=== PATIENT | female | born 1970 | race Caucasian/White ===

== ENCOUNTER 2021-01-21 12:58 | Emergency (ER) | payer OTHER, SELFPAY ==
--- NOTE | ~2021-01-21 | XR_ITS ---
EXAMINATION: XR CHEST CLINICAL INFORMATION: Palpitations COMPARISON: None TECHNIQUE: 2 views of the chest were obtained. FINDINGS: No significant abnormality is noted involving the heart, lungs, mediastinum, bony thorax or soft tissues. XR/XR chest 2V IMPRESSION: Unremarkable chest examination.
[2021-01-21 13:08] VITALS: BP 139/92; BP 141/80; PULSE 84; PULSE 94; RESP 13; O2SAT 100; BMI 21.5
--- NOTE | 2021-01-21 13:15 | ED_ITS ---
HPI - Arrhythmia/Palpitations General Chief Complaint: Arrhythmia/Palpitations Stated Complaint: cp Time Seen by Provider: 01/21/21 13:04 Source: patient Mode of arrival: EMS Limitations: no limitations History of Present Illness HPI narrative: A 50 year old patient presents with her palpitations that started at 11:50 a.m. this morning. Patient was sitting at home, and felt her heart racing, she felt lightheaded. Her had a pulseoximeter, patient's heart rate was 168 to the 130s. This episode lasted 15 or 20 minutes. When EMS arrived, her heart rate was 110, no vagal maneuvers were used. Patient's heart rate is currently 84. Patient has no history of SVT. During the episode she had no nausea, no chest pain, no shortness of breath. Reports she will feel her heart racing a few times a week, but it is barely noticeable goes away on its own. Saw cardiology 10 years ago for palpitations, reports she was put on a monitoring and evaluation advisor, had a normal echo, and was prescribed 25 mg of metoprolol which she has taken since that time. Patient is perimenopausal. 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 complaint: palpitations Onset (ago): hour(s) (1.5) Duration: now resolved Severity: moderate Context: occurred during rest Arrhythmia history: other (pmh PVC's) Associated symptoms: other (lightheaded) Related Data Allergies Allergy/AdvReac Type Severity Reaction Status Date / Time No Known Allergies Allergy Verified 01/21/21 13:15 Review of Systems Constitutional: Constitutional: Denies body ache(s), Denies chills, Denies fatigue, Denies fever(s), Denies headache(s), Denies malaise and Denies weakness Eyes: Eyes: Denies blurry vision and Denies diplopia ENT: Denies dizziness and Denies headache(s) Cardiovascular: Cardiovascular: Denies chest pain, Denies Epigastric Pain, Denies syncope, Denies leg edema, Denies Loss of Consciousness, Reports palpitations, Denies dyspnea and Denies dyspnea on exertion Respiratory: Respiratory: Denies chest congestion, Denies cough, Denies dyspnea and Denies dyspnea on exertion Gastrointestinal: Gastrointestinal: Denies abdominal pain, Denies constipation, Denies diarrhea and Denies vomiting Genitourinary: Genitourinary: Reports no additional female genitourinary complaints Musculoskeletal: Musculoskeletal: Reports no additional musculoskeletal complaints Integumentary/Breasts: Skin/Breast: Reports system reviewed and no additional complaints, except as docu Neurologic: Denies confusion, Denies dizziness, Denies syncope, Denies headache(s) and Denies weakness Psychiatric: Psychiatric: Denies anxiety, Denies confusion and Denies depression Endocrine: Endocrine: Denies fatigue and Reports palpitations PMFSH Past Medical History [facility] Narrative: Hypothyroid PVCs Social History Social History Advance Directives: No Advance Directives Information Provided: No Patient : No Physical Exam Vital Signs: Vital Signs: Last Vital Signs Temp 98.6 F 01/21/21 14:30 Pulse 76 01/21/21 16:51 Resp 16 01/21/21 16:51 BP 107/67 01/21/21 14:30 Pulse Ox 98 01/21/21 14:30 Body Mass Index 21.5 Const: General: healthy appearing, no acute distress, alert and awake; No confusion Nutritional Appearance: well nourished Orientation/consciousness: patient oriented x3 and No confusion Limitations: no limitations HENMT: Head: Yes normal to inspection, Yes normocephalic and Yes atraumatic Ears: hearing grossly normal bilaterally and external ears normal General nose exam: Normal external nose present Face and sinus: Yes normal facial exam Eyes: Conjunctivae: conjunctivae normal Pupils: Equal, round and reactive pupils present EOM: EOMs intact bilaterally Neck: Neck: Yes full ROM, Yes no lymphadenopathy and Yes supple Resp: Effort & Inspection: normal respiratory effort and able to speak in complete sentences Auscultation: clear to auscultation bilaterally, no crackles, no rales, no rhonchi and no wheezes Cardio: Rate: regular rate Rhythm: regular rhythm Heart sounds: S1 normal heart sound present and S2 normal heart sound present GI: Inspection: Yes normal to inspection Palpation (GI): Soft to palpation, nontender, no guarding and not rigid Percussion: Yes normal to percussion Auscultation: normal bowel sounds Skin: General skin exam: no rashes or lesions noted Neuro: General: patient oriented x3 and No confusion Cranial nerves: Yes Equal, round and reactive pupils present Extrem: General: Yes normal to inspection and Yes full ROM Psych: Appearance: grossly normal Affect: normal affect Attitude: cooperative Thought process: Normal thought process present Course Course Course Narrative: 50-year-old woman presents for palpitations that lasted for 15-20 minutes prior to arrival. Patient felt lightheaded. No chest pain, no shortness of breath. Patient is hypothyroid, with a history of PVCs. On metoprolol 25 mg. Will get labs, EKG, chest x-ray. Reevaluation(s) Reevaluation #1: Patient felt palpitations for few seconds, looked to the monitor, reports her heart rate was 120. Patient called to the nursing station, legal secretary states heart rate was 105. EKG shows prolonged QTC of 485 Reevaluation #2: Patient's initial troponin is 30.1. Labs are otherwise unremarkable, EKG shows no ischemic changes, magnesium is 2.0, chest x-ray shows no acute process. Discussed that this troponin is most likely elevated due to demand ischemia, discussed with patient utility of repeating troponin. Patient's TSH is size 6.13. Normal free T4. Repeat troponin shows an elevation that is not significant Discussed need to follow-up with Cardiology, referred Patient to [facility] Constipation of follow-up with her PCP for her elevated TSH MDM - Arrhythmia/Palpitations Lab Data Result diagrams: 01/21/21 14:29 01/21/21 14:29 Labs: Lab Results 01/21/21 01/21/21 01/21/21 Range/Units 14:29 14:29 14:29 WBC 10.0 (4.8-10.8) X10*3/uL RBC 4.00 L (4.20-5.50) X10*6/uL Hgb 13.5 (12.0-16.0) g/dl Hct 37.8 (37-47) % MCV 94.5 (80-98) fL MCH 33.8 H (27.0-33.0) pg MCHC 35.7 H (31.0-35.0) g/dl RDW 12.9 (11.0-16.0) % Plt Count 277 (160-400) X10*3/uL MPV 8.4 L (9.4-12.3) fL Immature Gran % (Auto) 0.4 (0.0-0.4) % Neut % (Auto) 67.9 (45-73) % Lymph % (Auto) 22.7 (20-40) % [place] % (Auto) 6.6 (2-11) % Eos % (Auto) 1.8 (0-4) % Baso % (Auto) 0.6 (0-2) % Lymph # (Auto) 2.3 (1.2-4.9) X10*3/uL [place] # (Auto) 0.7 (0.1-1.2) X10*3/uL Eos # (Auto) 0.2 (0.0-0.4) X10*3/uL Baso # (Auto) 0.1 (0.0-0.2) X10*3/uL Abs Immat Gran (auto) 0.04 H (0.00-0.03) X10*3/uL Absolute Neuts (auto) 6.8 (2.0-8.3) X10*3/uL Absolute Nucleated RBC 0.000 (0.0-0.012) X10*3/uL Nucleated RBC % (auto) 0.0 (0.0-0.2) /100WBC Sodium 138 (135-145) mmol/L Potassium 3.7 (3.3-5.1) mmol/L Chloride 107 (96-108) mmol/L Carbon Dioxide 22 (22-29) mmol/L Anion Gap 13 (12-20) BUN 13 (9-16) mg/dL Creatinine 0.78 (0.5-1.4) mg/dL Estim Creat Clear Calc 66.7 Estimated GFR > 60 Random Glucose 89 (60-115) mg/dL Calcium 9.1 (8.4-10.2) mg/dL Magnesium 2.0 (1.6-2.6) mg/dL Troponin I High Sens 30.1 H* (<3.5-17.0) ng/L TSH (0.32-4.0) uIU/mL Free T4 0.87 (0.71-1.85) ng/dL 01/21/21 01/21/21 Range/Units 14:29 17:34 WBC (4.8-10.8) X10*3/uL RBC (4.20-5.50) X10*6/uL Hgb (12.0-16.0) g/dl Hct (37-47) % MCV (80-98) fL MCH (27.0-33.0) pg MCHC (31.0-35.0) g/dl RDW (11.0-16.0) % Plt Count (160-400) X10*3/uL MPV (9.4-12.3) fL Immature Gran % (Auto) (0.0-0.4) % Neut % (Auto) (45-73) % Lymph % (Auto) (20-40) % [place] % (Auto) (2-11) % Eos % (Auto) (0-4) % Baso % (Auto) (0-2) % Lymph # (Auto) (1.2-4.9) X10*3/uL [place] # (Auto) (0.1-1.2) X10*3/uL Eos # (Auto) (0.0-0.4) X10*3/uL Baso # (Auto) (0.0-0.2) X10*3/uL Abs Immat Gran (auto) (0.00-0.03) X10*3/uL Absolute Neuts (auto) (2.0-8.3) X10*3/uL Absolute Nucleated RBC (0.0-0.012) X10*3/uL Nucleated RBC % (auto) (0.0-0.2) /100WBC Sodium (135-145) mmol/L Potassium (3.3-5.1) mmol/L Chloride (96-108) mmol/L Carbon Dioxide (22-29) mmol/L Anion Gap (12-20) BUN (9-16) mg/dL Creatinine (0.5-1.4) mg/dL Estim Creat Clear Calc Estimated GFR Random Glucose (60-115) mg/dL Calcium (8.4-10.2) mg/dL Magnesium (1.6-2.6) mg/dL Troponin I High Sens 43.6 H* (<3.5-17.0) ng/L TSH 6.13 H (0.32-4.0) uIU/mL Free T4 (0.71-1.85) ng/dL ECG Data Interpretation: Normal axis, sinus with a rate of 100. WI interval 160. QRS 88. Patient has prolonged QTc at 485. No ST elevations or depressions, no T- wave inversions or flattening. Discharge Plan Discharge Clinical Impression: Supraventricular tachycardia Patient Disposition: Home, Self-Care Instructions: Supraventricular Tachycardia (ED) Additional Instructions: If you have palpitations again, please refer to the information I printed for you, and please do a Valsalva maneuver. I suggest you lie down on the floor, lift your knees up to your chest, bear down and blow through a straw. If you cannot break the palpitations, please return to the emergency room. In addition, if you have chest pain, shortness of breath, nausea, sweatiness, return to the emergency room Please call Dr Leong, Cardiology, at [phone], tomorrow morning for a follow up appointment. Please follow-up with your primary care provided for your elevated TSH. Referrals: Jose Leong MD [Physician] - 2 days (new SVT)
--- NOTE | 2021-01-21 13:16 | ECG_ITS ---
Test Reason : PALPITATIONS Blood Pressure : / mmHG Vent. Rate : 100 BPM Atrial Rate : 100 BPM P-R Int : 160 ms QRS Dur : 088 ms QT Int : 376 ms P-R-T Axes : 076 062 065 degrees QTc Int : 485 ms Normal sinus rhythm Prolonged QT Abnormal ECG No previous ECGs available Referred By: Nusrat Jesus Electronically Signed By:TJ CLARK
[2021-01-21 14:30] VITALS: BP 107/67; PULSE 68; RESP 14; TEMP 37; O2SAT 98
[2021-01-21 14:37] LABS: MANUAL DIFF FLAG NO
[2021-01-21 14:38] LABS: Basophils Absolute Auto 0.1 X10*3/uL (0.0-0.2); Basophils Percent Auto 0.6 % (0-2); Eosinophils Absolute Auto 0.2 X10*3/uL (0.0-0.4); Eosinophils Percent Auto 1.8 % (0-4); Hematocrit 37.8 % (37-47); Hemoglobin 13.5 g/dl (12.0-16.0); Imm Gran Abs Auto 0.04 X10*3/uL (0.00-0.03); Imm Gran Pct Auto 0.4 % (0.0-0.4); Lymphocytes Absolute Auto 2.3 X10*3/uL (1.2-4.9); Lymphocytes Percent Auto 22.7 % (20-40); Mean Corpuscular HGB Conc 35.7 g/dl (31.0-35.0); Mean Corpuscular Hemoglobin 33.8 pg (27.0-33.0); Mean Corpuscular Volume 94.5 fL (80-98); Mean Platelet Volume 8.4 fL (9.4-12.3); Monocytes Absolute Auto 0.7 X10*3/uL (0.1-1.2); Monocytes Percent Auto 6.6 % (2-11); Neutrophils Absolute Auto 6.8 X10*3/uL (2.0-8.3); Neutrophils Percent Auto 67.9 % (45-73); Platelet Count 277 X10*3/uL (160-400); Red Cell Distribution Width 12.9 % (11.0-16.0)
[2021-01-21 15:04] LABS: Anion Gap 13 (12-20); Blood Urea Nitrogen 13 mg/dL (9-16); Calcium 9.1 mg/dL (8.4-10.2); Carbon Dioxide 22 mmol/L (22-29); Chloride 107 mmol/L (96-108); Creatinine Clr Calc Pharmacy 66.7; Estimated Glomerular Filt Rate > 60; Glucose Random 89 mg/dL (60-115); Potassium 3.7 mmol/L (3.3-5.1); Sodium 138 mmol/L (135-145)
[2021-01-21 15:12] LABS: Troponin-I High Sensitivity 30.1 ng/L (<3.5-17.0)
[2021-01-21 15:25] LABS: Thyroid Stimulating Hormone 6.13 uIU/mL (0.32-4.0)
[2021-01-21 16:05] LABS: Free T4 (Free Thyroxine) 0.87 ng/dL (0.71-1.85)
[2021-01-21 16:51] VITALS: PULSE 76; RESP 16
[2021-01-21 18:18] LABS: Troponin-I High Sensitivity 43.6 ng/L (<3.5-17.0)
== END 2021-01-21 19:14 | disposition home or self-care (01) ==
PROVIDERS: Physician Assistant; Emergency Provider Emergency Medicine; PCP Internal Medicine
DX: I47.1 Supraventricular tachycardia (principal); R00.2 Palpitations; Z79.899 Other long term (current) drug therapy
CPT/HCPCS: 36415; 71046; 80048; 83735; 84439; 84443; 84484; 85025; 93005; 99284; 99285

== ENCOUNTER 2024-03-02 08:11 | Outpatient (AMB) | payer OTHER, SELFPAY ==
--- NOTE | 2024-03-02 08:26 | A.OFFVIS_ITS ---
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 She has had palpitations for almost 15 years, presumed to be PVCs. As she has been having flare-up episodes off and on but for the most part well controlled. In 2020, she had an episode palpitations and she believes it was SVT episode. Any case, when she came to the ER it looked like normal rhythm. Troponins were slightly high. After that, she was seen at [facility]. It seems she had an echocardiogram and Holter which were unremarkable. She had 1 further episode few months back when she went to another hospital elsewhere. However, she states that when she went to ER workup was essentially unremarkable. Then she bought an Apple watch and started recording things herself. That showed PVCs which I was able to review today. [facility] Surgical History (Updated 03/02/24 @ 08:32 by Cassie Evans CMA) H/O bilateral oophorectomy Family History (Updated 03/02/24 @ 08:34 by Cassie Evans CMA) Father HTN (hypertension) Esophageal cancer Paternal Grandfather HTN (hypertension) Maternal Grandfather Lung cancer Sister Ovarian cancer Social History (Updated 03/02/24 @ 08:34 by Cassie Evans CMA) Alcohol intake: current Alcohol intake frequency: holidays/special occasions only Patient Tobacco Use Status: Former Tobacco user Review of Systems Const Denies chills, Denies daytime sleepiness, Denies fatigue, Denies fever(s), Denies poor appetite, Denies snoring, Denies stops breathing during sleep, Denies weakness, Denies weight gain and Denies weight loss Eyes Denies loss of vision ENT Denies dizziness and Denies hearing loss Card Denies chest pain, Denies irregular heart rhythm, Denies claudication, Denies leg edema, Denies lightheadedness, Denies palpitations, Denies dyspnea on exertion and Denies orthopnea Resp Denies cough, Denies excessive phlegm production, Denies dyspnea on exertion, Denies snoring and Denies wheezing GI Denies abdominal pain, Denies hematochezia, Denies change in bowel habits, Denies nausea and Denies vomiting Denies urinary frequency and Denies dysuria Musc Denies arthralgias, Denies muscle weakness, Denies numbness and Denies other Skin/Breast Denies nail changes and Denies rash Neuro Denies Abnormal speech present, Denies dizziness, Denies loss of vision, Denies memory loss, Denies numbness and Denies weakness Psych Denies depression and Denies memory loss Endo Denies fatigue and Denies palpitations Sandre/Lymph Denies easy bruising Aller/Immun Denies wheezing Physical Exam Vital Signs: Last Vital Signs Pulse 59 03/02/24 08:30 BP 102/64 03/02/24 08:30 BMI result Body Mass Index 22.3 Const General: comfortable and no acute distress Orientation/consciousness: patient oriented x3 HEENT Other: Unremarkable Head: Yes normal to inspection Neck Neck: Yes normal visual inspection Chest Chest palpation & inspection: normal inspection of the chest Resp Auscultation: clear to auscultation bilaterally Cardio Palpation: normal PMI Heart sounds: S1 normal heart sound present, S2 normal heart sound present, no gallops, no murmurs and no rubs GI Palpation (GI): Soft to palpation Back/Spine/Pelvis Other: unremarkable Skin General skin exam: no rashes or lesions noted Neuro General: patient oriented x3 Speech: No Abnormal speech present Extrem General: Yes normal to inspection Psych Mental Status: mental status grossly normal Office Procedures EKG Details: EKG today with sinus rhythm at 59/Min; no significant ST-T changes and otherwise [place] [id number], Complete Assessment & Plan Assessment & Plan (1) Heart palpitations: Code(s): R00.2 - Palpitations Category: Medical (2) PVC (premature ventricular contraction): Code(s): I49.3 - Ventricular premature depolarization Category: Medical (3) Elevated troponin: Code(s): R79.89 - Other specified abnormal findings of blood chemistry Category: Medical Plan Troponins in 2020 were slightly high at 30 and 43. On review of smart watch tracings, evidence of PVCs. They do look unifocal. There is evidence of bigeminy. No runs noted. Essentially, long history of PVCs with intermittent flare-ups with reasonable control on beta-blockers. We will repeat her testing. She already has an echocardiogram/stress test look through her PCP. We will need to look for exercise induced worsening of PVCs or any NSVT extra. Perfusion component will look for any ischemia. However, ischemia seems to be less likely in her case. Otherwise, we will do a 14 day Holter monitor to assess for PVC burden. She would like to stay on the beta-blockers as she is worried that stopping it will increase the palpitations. Will also get a cardiac MRI to look for myocardial scar. We will see her back once these are all completed. In the interim, she may continue to monitor herself on the Apple watch. We will reassess next time. Orders: Orders ECG 14 day holter monitor Today I49.3 - Ventricular premature depolarization MR cardiac morph fnct w con Today I42.9 - Cardiomyopathy, unspecified, I49.3 - Ventricular premature depolarization Coding Level of Care Code New Pt Level 4 (32321) Diagnoses Heart palpitations R00.2 PVC (premature ventricular contraction) I49.3 Elevated troponin R79.89 CPT Codes EKG - CPT: 79634-[id number], Complete ([id number])
[2024-03-02 08:30] VITALS: BP 102/64; PULSE 59; BMI 22.3
== END 2024-03-02 09:18 | disposition home or self-care (01) ==
PROVIDERS: PCP Internal Medicine; Visit Provider Internal Medicine
DX: R00.2 Palpitations (principal); I49.3 Ventricular premature depolarization; R79.89 Other specified abnormal findings of blood chemistry
CPT/HCPCS: 93010; 99204

== ENCOUNTER → 2024-03-02 08:11 | Outpatient (BNVA) | payer OTHER, SELFPAY | PROVIDERS: PCP Internal Medicine; Visit Provider Internal Medicine | DX: R00.2 Palpitations (principal); I49.3 Ventricular premature depolarization; R79.89 Other specified abnormal findings of blood chemistry | CPT/HCPCS: 93005 ==

== ENCOUNTER → 2024-03-30 13:49 | Outpatient (REF) | payer OTHER, SELFPAY ==
--- NOTE | 2024-03-30 13:55 | CA_ITS ---
Transthoracic Echocardiogram Patient (Last, First, Middle): Suzi Hurst, Gender: Female Date of : 1970 Age: 53 Procedure Date: 03/30/2024 Procedure Type: Transthoracic Echocardiogram Location: OP Height: 157.48 cm Weight: 54.43 kg BSA: 1.54 m2 Heart Rate: 66 bpm [employer] Manager: SANCHEZ Referring MD: Zena Astudillo MD Symptoms: I40.3 VENTRICULAR DEPOLARIZATION Study Quality: Adequate ECG Rhythm: Sinus Conclusions: - The left ventricular systolic function is normal. The calculated ejection fraction is 70% by biplane method. - No obvious valvular pathology seen on this study. Findings Left Ventricle Normal left ventricular cavity size. There is normal left ventricular wall thickness. The left ventricular systolic function is normal. The calculated ejection fraction is 70% by biplane method. There is no evidence of regional wall motion abnormalities. Diastolic function is normal for age. Right Ventricle Normal right ventricular cavity size and systolic function. Atria Both atria are normal in size. Aortic Valve There is a normal trileaflet aortic valve. There is no aortic valve stenosis. There is no aortic valve regurgitation. Mitral Valve The mitral valve appears normal. There is trace mitral valve regurgitation. There is no mitral valve stenosis. Pulmonic Valve The pulmonic valve is likely normal. Tricuspid Valve There is mild tricuspid valve regurgitation. There is no evidence of pulmonary hypertension. Great Vessels The asc aorta is normal in size. Venous The inferior vena cava is normal in size and collapses greater than 50% with inspiration. Pericardium/Pleural There is no evidence of pericardial effusion. Prior Study Comparison No prior study available for comparison. Recommendations, Care & Conclusions No obvious valvular pathology seen on this study. Measurements 2D Linear Measurements IVSd: 0.90 0.6-0.9/0.6-1.0 cm LVIDd: 4.15 3.9-5.3/4.2-5.9 cm LVIDd Index: 2.69 2.4-3.2/2.2-3.1 cm/m2 LVIDs: 3.14 2.0-3.6 cm LVPWd: 0.75 0.7-1.1 cm LA Diam: 3.30 2.7-3.8/3.0-4.0 cm LAIDs Index: 2.14 1.5-2.3 cm/m2 LV Mass: 128.69 67-162/88-224 g LV Mass Index: 83.56 43-95/49-115 g/m2 LVOT Diam: 2.00 3.0+(-)1.3 cm 2D Systolic Function EF 4C: 67.10 >55% EF 2C: 71.80 >55% EF BiP: 70.20 >55% Mitral Valve MV Pk E: 0.90 MV PK A: 0.69 MV Decel Time: 193.00 E/A: 1.30 E'Lateral: 11.40 E'Medial: 8.49 E/E' Med: 10.60 E/E' Lat: 7.90 PHT: 56.00 MVA PHT: 3.93 Decel [place]: 4.67 Aortic Valve AoV Pk César: 1.34 AoV Mn César: 1.00 AoV VTI: 0.28 AoV Pk Grad: 7.00 Aov Mn Grad: 5.00 VIKTOR Cont.VTI: 2.19 LVOT LVOT Pk César: 0.94 LVOT Mn César: 0.68 LVOT VTI: 0.19 LVOT Pk Grad: 4.00 LVOT Mn Grad: 2.00 LVOT Diam: 2.00 LVOT Area: 3.14 Diastolic Function MV Pk E: 0.90 MV Pk A: 0.69 E/A: 1.30 E'Medial: 8.49 E/E' Med: 10.60 E' Laterial: 11.40 E/E' Lat: 7.90 Right Ventricle TAPSE (mm): 25.00 TVS' César: 10.70 Tricuspid Valve TR Pk César: 1.64 TR Pk Grad: 11.00 RA Press: 3.00 RVSP: 14.00 Great Vessels Aorta Sinus of Valsalva: 2.90 2.0-3.5 cm Ao Asc: 2.90 2.1-3.4 cm Pulmonary Veins Pulm Vein S/D 0.80 Pulmonary Valve PV Pk César: 0.79 Peak PV Grad: 2.00 Updated in Other Vendor System with Status of Final Adams Enriquez MD electronically signed on 03/31/2024 11:00:09 AM with status of Final
== END ==
LOC: HO.CARD 13:49
PROVIDERS: PCP Internal Medicine; Visit Provider Internal Medicine
DX: I49.3 Ventricular premature depolarization (principal)
CPT/HCPCS: 93306

== ENCOUNTER → 2024-03-30 13:55 | Outpatient (BNV) | payer OTHER, SELFPAY | PROVIDERS: PCP Internal Medicine; Visit Provider Internal Medicine | DX: I36.1 Nonrheumatic tricuspid (valve) insufficiency (principal) | CPT/HCPCS: 93306 ==

== ENCOUNTER 2024-04-16 14:21 | Outpatient (REF) | payer OTHER, SELFPAY ==
[2024-04-16 15:10] LABS: Anion Gap 11 (12-20); Blood Urea Nitrogen 12 mg/dL (9-16); Calcium 9.5 mg/dL (8.4-10.2); Carbon Dioxide 28 mmol/L (22-29); Chloride 104 mmol/L (96-108); Estimated Glomerular Filt Rate > 60; Glucose Random 92 mg/dL (60-115); Potassium 3.9 mmol/L (3.3-5.1); Sodium 139 mmol/L (135-145)
== END 2024-04-16 14:22 | disposition home or self-care (01) ==
LOC: HO.LAB 14:21
PROVIDERS: PCP Internal Medicine; Visit Provider Internal Medicine
DX: I49.3 Ventricular premature depolarization (principal); R00.2 Palpitations
CPT/HCPCS: 36415; 80048

== ENCOUNTER → 2024-04-26 09:43 | Outpatient (REF) | payer OTHER, SELFPAY | LOC: HO.CARD 09:43 | PROVIDERS: PCP Internal Medicine; Visit Provider Internal Medicine | DX: I49.3 Ventricular premature depolarization (principal) | CPT/HCPCS: 93246 ==

== ENCOUNTER → 2024-04-26 09:45 | Outpatient (BNV) | payer OTHER, SELFPAY | PROVIDERS: PCP Internal Medicine; Visit Provider Internal Medicine | DX: I47.10 Supraventricular tachycardia, unspecified (principal) | CPT/HCPCS: 93248 ==

== ENCOUNTER 2024-08-31 12:48 | Outpatient (AMB) | payer OTHER, SELFPAY ==
--- NOTE | 2024-08-31 12:58 | MHC.OFFVIS ---
Vital Signs 08/31/24 12:59 Height 5 ft 2 in Weight 123 lb 7.342 oz BMI 22.6 BP 110/60 Blood Pressure Location Lt brachial Position Sitting Pulse 68 Pulse Source Pulse Oximeter Intake Visit Reasons: r/s 06/24/24 f/u stress/echo/14 day cardiac mri Allergies No Known Allergies Allergy (Verified 01/21/21 13:15) Medication List - Last Reconciled 08/31/24 by Adams Enriquez MD levothyroxine (Levoxyl) 75 mcg PO DAILY metoprolol succinate ER 50 mg PO DAILY HPI Comments Details: Suzi returns for follow-up. Recently seen in consultation regarding palpitations. She has had palpitations for almost 15 years, presumed to be PVCs. She has been having flare-up episodes off and on but for the most part well controlled. In 2020, she had an episode palpitations and she believes it was SVT episode. Any case, when she came to the ER it looked like normal rhythm. Troponins were slightly high. After that, she was seen at [facility]. It seems she had an echocardiogram and Holter which were unremarkable. She had 1 further episode few months back when she went to another hospital elsewhere. However, she states that when she went to ER workup was essentially unremarkable. Then she bought an Apple watch and started recording things herself. That showed PVCs which I was able to review recently. After the recent visit, she has completed a Holter monitor and cardiac MRI. She states she is actually doing quite well. She has not had any further symptoms. No palpitations or in fact anything cardiac related. [facility] Surgical History (Updated 03/02/24 @ 08:32 by Cassie Evans CMA) H/O bilateral oophorectomy Family History (Updated 03/02/24 @ 08:34 by Cassie Evans CMA) Father HTN (hypertension) Esophageal cancer Paternal Grandfather HTN (hypertension) Maternal Grandfather Lung cancer Sister Ovarian cancer Social History (Updated 03/02/24 @ 08:34 by Cassie Evans CMA) Alcohol intake: current Alcohol intake frequency: holidays/special occasions only Patient Tobacco Use Status: Former Tobacco user Review of Systems Const Denies weakness ENT Denies dizziness Card Denies chest pain, Denies chest pain with activity, Denies syncope, Denies rapid heart rate, Denies pedal edema, Denies edema, Denies leg edema, Denies lightheadedness, Denies palpitations, Denies dyspnea, Denies dyspnea on exertion and Denies orthopnea Resp Denies cough, Denies dyspnea and Denies dyspnea on exertion GI Denies hematochezia and Denies change in stool character Musc Denies abnormal gait, Denies muscle cramps, Denies muscle weakness, Denies numbness, Denies radiating pain into limb and Denies tingling Neuro Denies abnormal gait, Denies dizziness, Denies syncope, Denies numbness, Denies tingling and Denies weakness Endo Denies palpitations Physical Exam Vital Signs: Last Vital Signs Pulse 68 08/31/24 12:59 BP 110/60 08/31/24 12:59 BMI result Body Mass Index 22.6 Const General: comfortable and no acute distress Orientation/consciousness: patient oriented x3 HEENT Other: Unremarkable Head: Yes normal to inspection Neck Neck: Yes normal visual inspection Chest Chest palpation & inspection: normal inspection of the chest Resp Auscultation: clear to auscultation bilaterally Cardio Palpation: normal PMI Heart sounds: S1 normal heart sound present, S2 normal heart sound present, no gallops, no murmurs and no rubs GI Palpation (GI): Soft to palpation Back/Spine/Pelvis Other: unremarkable Skin General skin exam: no rashes or lesions noted Neuro General: patient oriented x3 Extrem General: Yes normal to inspection Psych Mental Status: mental status grossly normal Assessment & Plan Assessment & Plan (1) Heart palpitations: Code(s): R00.2 - Palpitations Category: Medical (2) PVC (premature ventricular contraction): Code(s): I49.3 - Ventricular premature depolarization Category: Medical Plan Pertinent data reviewed. In the echocardiogram, LVEF 70%. No significant valvular findings. In the cardiac MRI, LVEF is 64%; no abnormal late gadolinium enhancement. Otherwise, essentially unremarkable. In the Holter monitor, underlying rhythm is sinus with rare supraventricular/ventricular ectopy. Patient's symptoms actually correlated with sinus rhythm rather. On review of smart watch tracings, evidence of PVCs. They do look unifocal. There is evidence of bigeminy. No runs noted. Essentially, long history of PVCs with intermittent flare-ups and reasonable control on beta-blockers. With a structurally normal heart, these are low risk PVCs. We discussed about this today. We had also ordered a stress test in the past but she did not pursue that as she felt fine otherwise. If any recurring concerns, can readdress that. For follow-up, she will contact us as necessary. Total time spent including review of data, counseling, documentation, coordination of care-31 minutes. Coding Level of Care Code Est Pt Level 4 (91102) Diagnoses Heart palpitations R00.2 PVC (premature ventricular contraction) I49.3
[2024-08-31 12:59] VITALS: BP 110/60; PULSE 68; BMI 22.6
--- OUTSIDE RECORDS SUMMARY | 2024-08-31 14:56 | XMS_ITS | Clinical Summary ---
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 Role Phone Unavailable Primary Care Provider Unavailabl e Social History Tobacco Use Types Packs/Day Years Used Date Smoking Tobacco: Never Assessed Sex and Gender Information Value Date Recorded Sex Assigned at Not on file Gender Identity Not on file Sexual Orientation Not on file Job Start Date Occupation Industry Not on file Not on file Not on file Plan of Treatment Health Maintenance Due Date Last Done Comments Hepatitis B Vaccines (1 of 3 - 3-dose series) 1970 Hepatitis C Screening 1970 COVID-19 Vaccine (#1) 1968 Depression Screening 1980 Preventative Health Evaluation 1986 DTap / Tdap / Td (1 - Tdap) 1987 Cervical Cancer Screening (P ap Smear) 1989 Colon Cancer Screening (Colonoscopy) 2013 Breast Cancer Screening (Mammogram) 2018 Shingrix-Zoster Vaccine (1 of 2) 2018 Influenza Vaccine (#1) 2024 Pneumococcal Vaccine Aged Out No long er eligible based on patient's age to complete this topic RSV Ped < 20 months Aged Out No longe r eligible based on patient's age to complete this topic
--- OUTSIDE RECORDS SUMMARY | 2024-08-31 14:56 | XMS_ITS ---
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 Name Role Phone Znea Astudillo Primary Care Provider [phone] Allergies No Known Allergies REASON FOR VISIT Refill for med not on list Medications Medication SIG (Take, Route, Fr equency, Duration) Notes Start Date End Date Status valACYclovir HCl 1 GM 1 tablet Orally On ce a day for 10 days 09/13/2024 Active Encounters Encounter Location Date Provider Diagnosis Zena Astudillo MD [address] [phone] 08/24/2024 Zena Astudillo Plan Of Treatment Medication Medication Name Sig Start Date Stop Date Notes valACYclovir HCl 1 GM 1 tablet Orally On ce a day for 10 days 09/13/2024 Next Appt Details Provider Name:Zena Astudillo , 12/14/2024 01:15:00 PM, [address] [place] [address], [phone], Progress Notes * Ilene DEVLINOB: 8 (54 yo F)Acc No.[id number]:08/24/2024 Patient:?CLAUSShaheenSuzi :1970???Age:54 Y???Sex:Female Address:[address], [place], [address] * Refills? Refill valACYclovir HCl Tablet, 1 GM, Orally, 10, 1 tablet, Once a day, 10 days, Refills=1 Subjective: * Chief Complaints: * ???Refill for med not on lis t * Medical History:? * Surgical History:? * Hospitalization/Major Diagno stic Procedure:? * Medications:? * Allergies:?N.K.D.A.no[Allerg ies Verified] Objective: * Vitals:? Past Vitals:* 06/07/2024 Temp:96.9F, HR:79/min, BP:Si tting Right Arm: 122/70mm Hg, Wt:125lbs, BMI:22.86Index, Ht:62in, Oxygen sat %:99% * 02/11/2024 Temp:96.0F, HR:80/min, BP:Si tting Right Arm: 114/60mm Hg, Wt:128lbs, BMI:23.41Index, Ht:62in, Oxygen sat %:98% * 01/01/2024 BP:Sitting Right Arm: 108/50 mm Hg, Wt:121lbs, BMI:22.13Index, Ht:62in * Physical Examination:? Assessment: Plan: * Treatment: * Procedure Codes:? * true * Date:? Generated for Fitz hinojosa/Ephraim/Frederic on:?08/31/2024 02:55 PM EDT
--- OUTSIDE RECORDS SUMMARY | 2024-08-31 14:56 | XMS_ITS | Patient Health Record ---
Author Organization Zena Munguia MD Address [address] [id number] Care Team Providers Care Bank Vault Clerk Name Role Phone Zena Munguia Primary Care Provider Allergies No Known Allergies Results Component Value Reference Range Notes [id number] Reviewed date:06/24/2024 05:53:24 PM Interpretation: Performing Lab:[facility], [employer], [place], Phone - [phone], Director - MDJodry Notes/Report: TSH 1.200 0.450-4.500 uIU/mL THIN PREP,HPV (>29YR) (DIAG) Reviewed date:12/28/2023 08:22:28 PM Interpretation: Performing Lab: Notes/Report: CYTOLOGY ([facility]PER[facility]OR) 12/15/2023 Echocardiogram Reviewed date:06/07/2024 02:03:33 PM Interpretation: Performing Lab: Notes/Report: CT Chest W Reviewed date:02/06/2024 03:40:05 PM Interpretation: Performing Lab: Notes/Report: Original Ordering Provider: ZENA MUNGUIA MD [facility] Comp. Metabolic Panel (14)-3 Reviewed date:06/24/2024 05:53:24 PM Interpretation: Performing Lab:[facility], [address] [employer], [place], Phone - [phone], Director - MDJodry Notes/Report: Glucose 73 70-99 mg/dL BUN 12 6-24 mg/dL Creatinine 0.68 0.57-1.00 mg/dL eGFR 102 >59 mL/min/1.73 BUN/Creatinine Ratio 18 9-23 Sodium 135 134-144 mmol/L Potassium 4.3 3.5-5.2 mmol/L Chloride 99 96-106 mmol/L Carbon Dioxide, Total 24 20-29 mmol/L Calcium 9.8 8.7-10.2 mg/dL Protein, Total 7.7 6.0-8.5 g/dL Albumin 4.5 3.8-4.9 g/dL Globulin, Total 3.2 1.5-4.5 g/dL Bilirubin, Total <0.2 0.0-1.2 mg/dL Alkaline Phosphatase 90 44-121 IU/L AST (SGOT) 27 0-40 IU/L ALT (SGPT) 20 0-32 IU/L MM Digital Mammo Screening Reviewed date:04/06/2024 06:10:31 PM Interpretation: Performing Lab: Notes/Report: PROCEDURE: MM Digital Mammo Screening INDICATION: Screening. No known abnormalities. Family history of breast cancer. COMPARISON: Multiple priors TECHNIQUE: Full-field digital CC and MLO views of both breasts were obtained. Computer-aided detection (CAD) was utilized in the interpretation of this study. Bilateral tomosynthesis views were obtained. DENSITY: The breast tissue is heterogeneously dense, which may obscure small masses. FINDINGS: No suspicious masses, suspicious microcalcifications, or areas of architectural distortion to suggest malignancy. IMPRESSION: No mammographic evidence of malignancy. RECOMMENDATION: Annual mammographic screening BI-RADS: 2 (Benign) Lay letter mailed to patient WSN: [id number] Ordering Physician: Zena Munguia Dictated By: Odalis Wilkes MD PROCEDURE: MM Digita l Mammo Screening INDICATION: Screenin g. No known abnormalities. Family history of breast cancer. COMPARISON: Multiple priors TECHNIQUE: Full-fiel d digital CC and MLO views of both breasts were obtained. Computer-aided detection (CAD) was utilized in the interpretation of this study. Bilateral tomosynthe sis views were obtained. DENSITY: The breast tissue is heterogeneously dense, which may obscure small masses. FINDINGS: No suspici ous masses, suspicious microcalcifications, or areas of architectural distortion to suggest malignancy. IMPRESSION: No mammographic evidence of malignancy. RECOMMENDATION: Raquel al mammographic screening BI-RADS: 2 (Benign) Lay letter mailed to patient WSN: [id number] Ordering Physician: Zena Munguia PDF Report Reviewed date:12/28/2023 08:22:28 PM Interpretation: Performing Lab:[facility] [place], [address] [facility], Phone - [phone], Director - Arnaud Notes/Report: Comp. Metabolic Panel (14)-3 Reviewed date:12/28/2023 08:22:28 PM Interpretation: Performing Lab:[facility] [place], [address] [facility], Phone - [phone], Director - Arnaud Notes/Report: Glucose 85 70-99 mg/dL BUN 12 6-24 mg/dL Creatinine 0.76 0.57-1.00 mg/dL eGFR 92 >59 mL/min/1.73 BUN/Creatinine Ratio 16 9-23 Sodium 140 134-144 mmol/L Potassium 4.4 3.5-5.2 mmol/L Chloride 101 96-106 mmol/L Carbon Dioxide, Total 21 20-29 mmol/L Calcium 9.3 8.7-10.2 mg/dL Protein, Total 7.3 6.0-8.5 g/dL Albumin 4.4 3.8-4.9 g/dL Globulin, Total 2.9 1.5-4.5 g/dL Bilirubin, Total 0.3 0.0-1.2 mg/dL Alkaline Phosphatase 97 44-121 IU/L AST (SGOT) 19 0-40 IU/L ALT (SGPT) 12 0-32 IU/L CBC With Differential/Platel et-[id number] Reviewed date:12/28/2023 08:22:28 PM Interpretation: Performing Lab:[facility] [place], [address] [facility], Phone - [phone], Director - Arnaud Notes/Report: WBC 7.6 3.4-10.8 x10E3/uL RBC 4.29 3.77-5.28 x10E6/uL Hemoglobin 14.5 11.1-15.9 g/dL Hematocrit 43.0 34.0-46.6 % MCV 100 79-97 fL MCH 33.8 26.6-33.0 pg MCHC 33.7 31.5-35.7 g/dL RDW 12.9 11.7-15.4 % Platelets 333 150-450 x10E3/uL Neutrophils 51 Not Estab. % Lymphs 37 Not Estab. % Monocytes 7 Not Estab. % Eos 4 Not Estab. % Basos 1 Not Estab. % Neutrophils (Absolute) 3.8 1.4-7.0 x10E3/uL Lymphs (Absolute) 2.8 0.7-3.1 x10E3/uL Monocytes(Absolute) 0.6 0.1-0.9 x10E3/uL Eos (Absolute) 0.3 0.0-0.4 x10E3/uL Baso (Absolute) 0.1 0.0-0.2 x10E3/uL Immature Granulocytes 0 Not Estab. % Immature Grans (Abs) 0.0 0.0-0.1 x10E3/uL Urinalysis, Complete-[id number] Reviewed date:12/28/2023 08:22:28 PM Interpretation: Performing Lab:[facility], Phone - [phone], Director - MDdry Notes/Report: Specific [place] 1.011 1.005-1.030 pH 6.0 5.0-7.5 Urine-Color Yellow Yellow Appearance Clear Clear WBC Esterase 1+ Negative Protein Negative Negative/Trace Glucose Negative Negative Ketones Negative Negative Occult Blood Negative Negative Bilirubin Negative Negative Urobilinogen,Semi-Qn 0.2 0.2-1.0 mg/dL Nitrite, Urine Negative Negative Microscopic Examination See below: Micr oscopic was indicated and was performed. WBC 0-5 0 - 5 /hpf RBC None seen 0 - 2 /hpf Epithelial Cells (non renal) None seen 0 - 10 /hpf Casts None seen None seen /lpf Bacteria None seen None seen/Few Thyroxine (T4) Free, Direct- [id number] Reviewed date:06/24/2024 05:53:24 PM Interpretation: Performing Lab:[employer] [facility] [address], Phone - [phone], [facility] Notes/Report: T4,Free(Direct) 1.20 0.82-1.77 ng/dL HCV Antibody-[id number] Reviewed date:12/28/2023 08:22:28 PM Interpretation: Performing Lab:[facility] [address], Phone - [phone], Director - NEJodry Notes/Report: Hep C Virus Ab Non Reactive Non Reactive HCV antibody alone does not differentiate between previously resolved infection and active infection. Equivocal and Reactive HCV antibody results should be followed up with an HCV RNA test to support the diagnosis of active HCV infection. LP+Non-HDL Cholesterol-[id number] 5 Reviewed date:12/28/2023 08:22:28 PM Interpretation: Performing Lab:[facility] [place], [address] [place] [address], Phone - [phone], Director - Arnaud Notes/Report: Cholesterol, Total 287 100-199 mg/dL Triglycerides 169 0-149 mg/dL HDL Cholesterol 80 >39 mg/dL VLDL Cholesterol Fernando 30 5-40 mg/dL LDL Chol Calc (NIH) 177 0-99 mg/dL Non-HDL Cholesterol 207 0-129 mg/dL Vitamin D, 98-Kpkdeyv-[id number] Reviewed date:12/28/2023 08:22:28 PM Interpretation: Performing Lab:[facility] [place], [address] [place] [address], Phone - [phone], Director - Arnaud Notes/Report: Vitamin D, 25-Hydroxy 37.1 30.0-100.0 ng/mL Vitamin D deficiency has been defined by the [place] of Medicine and an Endocrine Society practice guideline as a level of serum 25-OH vitamin D less than 20 ng/mL (1,2). The Endocrine Society went on to further define vitamin D insufficiency as a level between 21 and 29 ng/mL (2). 1. IOM ([place] of Medicine). 2010. Dietary reference intakes for calcium and D. [place]: The National Academies Press. 2. Lucía MF, Clarke [place], Amalia SPAIN, et al. Evaluation, treatment, and prevention of vitamin D deficiency: an Endocrine Society clinical practice guideline. JCEM. 2010; 96(7):1911-30. [id number] Reviewed date:12/28/2023 08:22:28 PM Interpretation: Performing Lab:[facility] [place], [address] [place] [address], Phone - [phone], Director - Arnaud Notes/Report: TSH 1.780 0.450-4.500 uIU/mL Thyroxine (T4) Free, Direct- [id number] Reviewed date:12/28/2023 08:22:28 PM Interpretation: Performing Lab:[facility] [place], [address] [place] [address], Phone - [phone], Director - Arnaud Notes/Report: T4,Free(Direct) 1.25 0.82-1.77 ng/dL Reason For Referral Reason faxed Diagnosis 1 Personal history of colonic polyps (Z86.010) Referral Organization [facility] Referring Provider First Name Zena Referring Provider Last Name Baudilio Referring Provider Speciality Internal edicine Referred Provider Rosmery Machado Referred Provider Specialty Gastroentero logy General Notes [facility]24 03:42:28 PM >faxed, [facility] Cinthya 03/22/2024 10:43:17 AM >Patient tried to book with facility but they did not have referral. Refaxing., [facility] Katja Decker L 03/23/2024 06:41:01 PM >Asking for review by Rowena Robles or Berta as patient did not leave [facility] by choice but because of insurance coverage. 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 I am refaxing. Referral Priority Routine Reason faxed Diagnosis 1 Supraventricular tac hycardia, unspecified (I47.10) Referral Organization [facility] [employer] Referring Provider First Name Zena Referring Provider Last Name Baudilio Referring Provider Speciality Internal edicine Referred Provider Blu Roberson Referred Provider Specialty Cardiology General Notes Sandy GUZMÁN 01/2024 09:30:29 AM > faxARIELLE dalton Brooke R 01/12/2024 04:11:13 PM > called lm on , Sandy GUZMÁN 01/12/2024 04:27:26 PM > Cassie called back stating patient already has appointment NPI #[id number], Sandy GUZMÁN 01/12/2024 04:28:54 PM > for insurance referral Referral Priority Routine Referral Appointment Date 03/02/2024 Reason faxed Diagnosis 1 Personal history of colonic polyps (Z86.010) Referral Organization [facility] [employer] Referring Provider First Name Zena Referring Provider Last Name Baudilio Referring Provider Speciality Internal edicine Referred Provider Rosmery Machado Referred Provider Specialty Gastroentero logy General Notes Cinthya GUZMÁN 03/03 09:06:59 AM >faxed Referral Priority Routine Reason faxed Diagnosis 1 Personal history of adenomatous and serrated colon polyps (Z86.0101) Referral Organization [facility] Referring Provider First Name Zena Referring Provider Last Name Baudilio Referring Provider Speciality Internal M edicine Referred Provider [facility] ReferralKevin ybkkhrm-Qofb-Skiqhr-ID-Pulmonary Referred Provider Specialty Gastroentero logy General Notes Cinthya GUZMÁN 04/02 04:24:27 PM >faxed [facility] referral form Referral Priority Routine Medications Medication SIG (Take, Route, Frequency, Duration) Notes Start Date End Date Status Levoxyl 75 MCG 1 tablet in the morning on an empty stomach Orally Once a day for 90 days Active Vitamin D 2000 UNIT 1 capsule Orally Thr ee times a week Active Calcium 500 + D 500-200 MG-UNIT 1 tablet with a meal Orally Once a day for 30 day(s) Active Metoprolol Tartrate 25 MG 1 Tablet as needed Orally Once a day for 30 day(s) 05/21/2021 Not-Taking Dicyclomine HCl 20 MG 1 tablet Orally Four times a day for 7 days Prn 04/06/2018 Active valACYclovir HCl 1 GM 1 tablet Orally On ce a day for 10 days 09/13/2024 Active traZODone HCl 50 MG 1 tablet at bedtime as needed Orally Once a day for 90 days Prn Active Metoprolol Succinate ER 50 MG 1 tablet Orally Once a day for 90 days Active Immunizations Vaccine Route Administration Date Status Comme nts Influenza Unknown 03/01/2020 Administered Bfojmbuhk-1054-10 Afluria-Single Unknown 03/20/2022 Administered ABTYE-69-Oamrmng Vaccine Unknown 05/31/2020 Administere d HWFUW-04-Gnzbcir Vaccine Unknown 06/28/2020 Administere d OJCCO-59-Rqudwip Vaccine Unknown 04/10/2021 Administere d OZFDY-00-Obiqult Vaccine Unknown 10/09/2021 Administere d COVID-19 Pfizer BiValent Booster Unknown 03/20/2022 Administered *Tdap Unknown 06/02/2010 Administered Influenza-Afluria (IIV4) Unknown 03/27/2021 Administere d Td (adult) preservative free Unknown 06/02/1995 Administered Td (adult) preservative free Unknown 06/02/2006 Administered Td (adult) preservative free IM Intramuscular 11/06/2020 Administered Social History AUDIT-C (Standard) Question Answer Notes Did you have a drink contain ing alcohol in the past year? Yes How often did you have six o r more drinks on one occasion in the past year? Never (0 point) How many drinks did you have on a typical day when you were drinking in the past year? 1 or 2 drinks (0 point) How often did you have a dri nk containing alcohol in the past year? 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) Active confirmed Problem Benign neoplasm of thyroid gland (08933627) Benign neoplasm of thyroid gland (D34) Active confirmed Problem Autoimmune thyroiditis (59670602) Autoimmune thyroiditis (E06.3) Active confirmed Problem Vitamin D deficiency (50720707) Vitamin D deficiency, unspecified (E55.9) Active confirmed Problem Tobacco user (031853710) Nicotine dependence, cigarettes, in remission (F17.211) Active confirmed Problem 195882495 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) Active confirmed Problem Irritable bowel syndrome (17110673) Irritable bowel syndrome without diarrhea (K58.9) Active confirmed Problem Family history of malignant neoplasm of breast (785426580) Family history of malignant neoplasm of breast (Z80.3) Active confirmed Problem Family history of malignant neoplasm of ovary (461073255) Family history of malignant neoplasm of ovary (Z80.41) Active confirmed Problem 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) Active confirmed Problem Supraventricular tachycardia (disorder) (6081449) Supraventricular tachycardia, unspecified (I47.10) Active confirmed Problem Personal history of adenomatous and serrated colon polyps (Z86.0101) Active confirmed Problem Insomnia (872586330) Insomnia, unspecified (G47.00) Inactive confirmed Problem Tachycardia (1198790) Tachycardia, unspecified (R00.0) Inactive confirmed Problem Solitary pulmonary nodule (063257465) Solitary pulmonary nodule (R91.1) Problem resolved confirmed Vital Signs Heart Rate 79 /min 06/07/2024 Temperature 96.9 degrees Fahrenheit 06/07/2024 Blood pressure diastolic 70 mm Hg 06/07/2024 Oximetry 99 % 06/07/2024 Height 62 in 06/07/2024 Blood pressure systolic 122 mm Hg 06/07/2024 Weight 125 lbs 06/07/2024 BMI 22.86 kg/m2 06/07/2024 Encounters Encounter Location Date Provider Diagnosis Zena Munguia MD [address] [id number] 12/09/2023 Zena Munguia Supraventricular tachycardia, unspecified I47.10 ; Encounter for general adult medical examination without abnormal findings Z00.00 ; Autoimmune thyroiditis E06.3 ; Personal history of colonic polyps Z86.010 ; Family history of malignant neoplasm of breast Z80.3 ; Family history of malignant neoplasm of ovary Z80.41 ; Nicotine dependence, cigarettes, in remission F17.211 ; Vitamin D deficiency, unspecified E55.9 ; Encounter for screening for malignant neoplasm of colon Z12.11 ; Encounter for screening mammogram for malignant neoplasm of breast Z12.31 ; Encounter for screening for osteoporosis Z13.820 ; Encounter for screening for cardiovascular disorders Z13.6 ; Encounter for immunization Z23 ; Encounter for antibody response examination Z01.84 and Encounter for screening for other viral diseases Z11.59 Zena Munguia MD [address] [id number] 01/01/2024 Zena Mnuguia Supraventricular tachycardia, unspecified I47.10 and Solitary pulmonary nodule R91.1 Zena Munguia MD [address] [id number] 02/11/2024 Zena Munguia Supraventricular tachycardia, unspecified I47.10 ; Solitary pulmonary nodule R91.1 ; Autoimmune thyroiditis E06.3 ; Nicotine dependence, cigarettes, in remission F17.211 ; Vitamin D deficiency, unspecified E55.9 and Ventricular premature depolarization I49.3 Zena Munguia MD [address] [id number] 06/07/2024 Zena Munguia Supraventricular tachycardia, unspecified I47.10 ; Ventricular premature depolarization I49.3 ; Autoimmune thyroiditis E06.3 ; Solitary pulmonary nodule R91.1 ; Nicotine dependence, cigarettes, in remission F17.211 and Vitamin D deficiency, unspecified E55.9 Zena Munguia MD [address] [id number] 12/30/2023 Zena Munguia MD [address] [id number] 01/12/2024 [facility] [address] [place], [place] [id number] 02/06/2024 [facility] [address] [place], [place] [id number] 02/11/2024 [facility] [address] [place] [id number] 02/20/2024 [facility] [address] [place] [id number] 04/26/2024 [facility] [address] [place] [address] [id number] 01/01/2024 [facility] [address] [place] [id number] 01/02/2024 Zena Munguia Supraventricular tachycardia, unspecified I47.10 [facility] [address] [place] [id number] 01/04/2024 [facility] [address] [place] [id number] 01/14/2024 [facility] [address] [place] [address] [id number] 02/23/2024 [facility] [address] [place] [id number] 03/19/2024 [facility] [address] [place] [id number] 03/23/2024 Zena Munguia Personal history of colonic polyps Z86.010 [facility] [address] [place] [id number] 03/23/2024 [facility] [address] [place] [id number] 04/13/2024 Zena Munguia Personal history of adenomatous and serrated colon polyps Z86.0101 [facility] [address] [place] [id number] 04/14/2024 [facility] [address] [place] [address] [id number] 07/20/2024 [facility] [address] [place] [address] [id number] 07/24/2024 Zena Munguia MD [address] [place] [address] [id number] 08/24/2024 Zena Munguia MD [address] [id number] 08/24/2024 Zena Munguia MD [address] [id number] 08/26/2024 Zena Munguia Assessments Encounter Date Diagnosis (ICD Code) Assessment Notes Treatment Notes Treatment Clinical Notes Section Notes 01/02/2024 Supraventricular tachycardia, unspecified (ICD-10 - I47.10) 03/23/2024 Personal history of colonic polyps (ICD-10 - Z86.010) 06/07/2024 Ventricular premature depolarization (ICD-10 - I49.3) Symptomatically stable. Continue medical therapy. She used to have symptoms in association with activity making it suggestive of an ischemic etiology but given the control of her symptoms and no recurrent PVCs with current medical therapy can continue to observe on a clinical basis instead of pursuing a stress test 06/07/2024 Supraventricular tachycardia, unspecified (ICD-10 - I47.10) She had an evaluation with a normal echocardiogram and cardiac MRI. She did not get any stress test due to insurance noncoverage. At the present time she feels well with her current medical therapy and given the controlled symptoms there may not be any reason to do any additional evaluation 02/11/2024 Solitary pulmonary nodule (ICD-10 - R91.1) No evidence of nodule on recent CAT scan. 02/11/2024 Supraventricular tachycardia, unspecified (ICD-10 - I47.10) She has not had any further episodes of SVT. She is back down to 50 mg of metoprolol which she is able to handle in terms of side effects. She has cardiology appointment pending but as discussed the options are either chemical control with metoprolol versus ablation. She will see what cardiology says about this. 01/01/2024 Solitary pulmonary nodule (ICD-10 - R91.1) She had a chest x-ray that showed an 11 mm nodule. Based on this and her tobacco use history recommend CAT scan. She may also need a PET scan 01/01/2024 Supraventricular tachycardia, unspecified (ICD-10 - I47.10) See prior message for additional history. She had gone to the ER given the fact that she was having increasing palpitations with activity. By time she got the ER there were no recurrent symptoms and she was sent home with negative evaluation. For her that it felt more of an irregularity rather than of tachycardia. She was worried in terms of if this could be something significant. It is possible that this could be PVCs as she has had in the past or different tachyarrhythmia. The issues to capture this and record the actual arrhythmia. She does have a recording device but did not have access to it because the battery had been . At this point recommend maintaining metoprolol at 50 mg and if she gets symptomatic to have a recording device such as [email or web address] or [employer] recording device. Holter monitor is another option but I think the other recording devices will be better for her. If there is recurrence and there is a tachyarrhythmia that is different than SVT then further evaluation and treatment options can be considered. 04/13/2024 Personal history of adenomatous and serrated colon polyps (ICD-10 - Z86.0101) 12/09/2023 Encounter for general adult medical examination without abnormal findings (ICD-10 - Z00.00) General healthcare up-to-date. Check routine labs 12/09/2023 Supraventricular tachycardia, unspecified (ICD-10 - I47.10) Symptomatically stable with current medical therapy. She is only using 50 mg of metoprolol succinate per daily and has not had to use any additional medical therapy at the present time. 12/09/2023 Autoimmune thyroiditis (ICD-10 - E06.3) Stable on prior labs as reviewed. Recheck status. 02/11/2024 Autoimmune thyroiditis (ICD-10 - E06.3) Stable on recent labs as reviewed 06/07/2024 Autoimmune thyroiditis (ICD-10 - E06.3) Stable on prior labs reviewed. Recheck status 06/07/2024 Solitary pulmonary nodule (ICD-10 - R91.1) No evidence of nodule on recent CAT scan. 02/11/2024 Nicotine dependence, cigarettes, in remission (ICD-10 - F17.211) Remains in remission 12/09/2023 Personal history of colonic polyps (ICD-10 - Z86.010) Due for repeat colonoscopy 12/09/2023 Family history of malignant neoplasm of breast (ICD-10 - Z80.3) Up-to-date on mammogram 06/07/2024 Nicotine dependence, cigarettes, in remission (ICD-10 - F17.211) Remains in remission 02/11/2024 Vitamin D deficiency, unspecified (ICD-10 - E55.9) Fair control and stable on prior labs as reviewed. Would recommend continuing vitamin D supplementation for goal level of 30+ 06/07/2024 Vitamin D deficiency, unspecified (ICD-10 - E55.9) Fair control and stable on prior labs as reviewed. Would recommend continuing vitamin D supplementation for goal level of 30+ 02/11/2024 Ventricular premature depolarization (ICD-10 - I49.3) She is having increasing PVCs. She had increased her metoprolol tartrate 75 mg. Her PVCs are activity associated according to her recordings on her sports watch. Given that this is more activity related possibility of dilated cardiomyopathy or ischemic etiologies is a concern but her probability of ischemic heart disease is low. At this point recommend at least an echocardiogram to verify that there is no dilated cardiomyopathy and to further evaluate activity associated premature ventricular contractions a stress test may be also useful. If these evaluations are unremarkable then she may want to consider a PVC ventricular ablation if she feels that her symptoms are significant enough that they cannot be controlled with medical therapy. 12/09/2023 Family history of malignant neoplasm of ovary (ICD-10 - Z80.41) Status post oophorectomy and stable without evidence of disease 12/09/2023 Nicotine dependence, cigarettes, in remission (ICD-10 - F17.211) She remains in remission. She discontinued tobacco 20 years ago. At the present time she technically does not meet the criteria for lung cancer screening given the fact that she has discontinued tobacco over 15 years ago. But this is an option she could consider. She will think about this. 12/09/2023 Vitamin D deficiency, unspecified (ICD-10 - E55.9) Fair control on prior labs as reviewed. Recommend continuing vitamin D supplementation for goal level of 30+ 12/09/2023 Encounter for screening for malignant neoplasm of colon (ICD-10 - Z12.11) Due for repeat colon cancer screening 12/09/2023 Encounter for screening mammogram for malignant neoplasm of breast (ICD-10 - Z12.31) Up-to-date on breast cancer screening 12/09/2023 Encounter for screening for osteoporosis (ICD-10 - Z13.820) Up-to-date on osteoporosis screening 12/09/2023 Encounter for screening for cardiovascular disorders (ICD-10 - Z13.6) Blood pressure stable. Can check for comorbidity of hyperlipidemia and hyperglycemia to further assess risk 12/09/2023 Encounter for immunization (ICD-10 - Z23) Vaccines up-to-date 12/09/2023 Encounter for antibody response examination (ICD-10 - Z01.84) Titers have been checked in the past and there is immunity to rubeola 12/09/2023 Encounter for screening for other viral diseases (ICD-10 - Z11.59) Can screen for hepatitis C as per general recommendation 12/09/2023 Other This note was created with voice dictation recognition software and may contain errors of grammar and syntax. Also labs were reviewed with patient. 01/01/2024 Other This note was created with voice dictation recognition software and may contain errors of grammar and syntax. Also labs were reviewed with patient. 02/11/2024 Other This note was created with voice dictation recognition software and may contain errors of grammar and syntax. Also labs were reviewed with patient. 06/07/2024 Other This note was created with voice dictation recognition software and may contain errors of grammar and syntax. Also labs were reviewed with patient. Plan Of Treatment Pending Test Test Name Order Date Exercise Stress Nuclear Test 02/11/2024 Holter Test 01/23/2021 FREE T4 07/03/2023 TSH 07/03/2023 FOLATE 04/06/2018 [facility] 10/14/2017 Next Appt Details Provider Name:Zena Munguia 12/14/2024 01:15:00 PM, [address] [place] [address], [address], [place], [place], [phone], Insurance Providers Payer Name Payer Address Payer Phone Subscriber Number Group Number Insured Name Patient Relationship to Insured Coverage Start Date Coverage End Date [facility] PPO [address] [place] [id number] [phone] [id number] Suzi Hurst Self - patient is the insured Medical (General) History Medical History History ICD Code Irritable bowel syndrome without diarrhe a K58.9 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
--- OUTSIDE RECORDS SUMMARY | 2024-08-31 14:56 | XMS_ITS ---
Author Organization Zena Astudillo MD Address [address] [phone] Care Team Providers Care Equipment Operating Engineer Name Role Phone Zena Astudillo Primary Care Provider REASON FOR VISIT New Referral Request Encounters Encounter Location Date Provider Diagnosis Zena Astudillo MD [address] [place] [phone] 08/24/2024 Zena Astudillo Plan Of Treatment Next Appt Details Provider Name:Zena Astudillo , 12/14/2024 01:15:00 PM, [address] [place] [address], [place] [address], [place], [place], [phone], Progress Notes * Ilene DEVLINOB: 8 (54 yo F)Acc No.[id number]:08/24/2024 Patient:?Suzi DEVLIN :1970???Age:54 Y???Sex:Female Address:[address], [place], [address] * true * Date:? Generated for Printi ashish/Faliboriog/eTransmitting on:?08/31/2024 02:56 PM EDT
--- OUTSIDE RECORDS SUMMARY | 2024-08-31 14:56 | XMS_ITS ---
Author Organization Zena Astudillo MD Address [address] [phone] Care Team Providers Care Parking Officer Name Role Phone Zena Astudillo Primary Care Provider REASON FOR VISIT RE:New Referral Request Encounters Encounter Location Date Provider Diagnosis Zena Astudillo MD [address] [facility] [address] [place] [phone] 08/26/2024 Zena Astudillo Plan Of Treatment Next Appt Details Provider Name:Zena Astudillo , 12/14/2024 01:15:00 PM, [address] [place] [address], SUITE [facility], [place], [place], [phone], Progress Notes * Ilene DEVLINOB: 8 (54 yo F)Acc No.[id number]:08/26/2024 Patient:?Suzi DEVLIN :1970???Age:54 Y???Sex:Female Address:[address], [place], [address] * true * Date:? Generated for Printi ng/Faliboriog/eTransmitting on:?08/31/2024 02:55 PM EDT
== END 2024-08-31 13:15 | disposition home or self-care (01) ==
LOC: HO.HCS 12:48
PROVIDERS: PCP Internal Medicine; Visit Provider Internal Medicine
DX: R00.2 Palpitations (principal); I49.3 Ventricular premature depolarization
CPT/HCPCS: 99214